=== PATIENT | female | born 1945 | race Caucasian/White ===

== ENCOUNTER 2024-05-13 23:02 | Emergency (ER) | payer MEDICARE, OTHER ==
[~2024-05-13] VITALS: Ht 162.6 cm; Wt 83.9 kg
[2024-05-13 23:27] VITALS: O2SAT 96
[2024-05-13] MEDS ORDERED: APIX5TAB (23:39)
[2024-05-13] MEDS ORDERED: PARO-154 (23:39)
[2024-05-13] MEDS ORDERED: SITA1TAB6 (23:39)
[2024-05-13] MEDS ORDERED: ROSU10TA2 (23:39)
[2024-05-13] MEDS ORDERED: METO-357 (23:39)
[2024-05-13] MEDS ORDERED: OXYCODONE HCL 5 MG TABLET ONE (23:57)
[2024-05-14] MEDS: OXYCODONE HCL 5 MG TABLET PO ONE (00:15)
[2024-05-14] MEDS ORDERED: LIDOCAINE HCL 1% 20 ML VIAL ONE (00:30)
[2024-05-14] MEDS: LIDOCAINE HCL 1% 20 ML VIAL IJ ONE (00:43)
== END 2024-05-14 01:25 | disposition home or self-care (01) ==
LOC: ER 23:15
DX: S63.266A Dislocation of metacarpophalangeal joint of right little finger, initial encounter (principal); E11.9 Type 2 diabetes mellitus without complications; E78.5 Hyperlipidemia, unspecified; I48.91 Unspecified atrial fibrillation; Z79.01 Long term (current) use of anticoagulants; Z79.899 Other long term (current) drug therapy; W01.0XXA Fall on same level from slipping, tripping and stumbling without subsequent striking against object, initial encounter; Y93.89 Activity, other specified; Y92.89 Other specified places as the place of occurrence of the external cause; Y99.8 Other external cause status
CPT/HCPCS: 26700; 73110; 73130; 82962; 93005; 99284; J3490; A4606; A4663